=== PATIENT | male | born 1965 | race Hispanic/Latino ===

== ENCOUNTER 2019-01-03 12:42 | Emergency (ER) | payer BC ==
[2019-01-03] MEDS ORDERED: Ibuprofen 200 MG TAB ONE (14:45)
[2019-01-03] MEDS ORDERED: Adacel (T-DAP) 0.5 ML SYRINGE ONE (14:45)
[2019-01-03] MEDS ORDERED: Lidocaine 1% (PF) 30 ML VIAL ONE (15:07)
--- NOTE | 2019-01-03 15:57 | RAD ---
Exam:3 views left HISTORY: Pain. Trauma. Injury. COMPARISON: None FINDINGS: Posttraumatic soft tissue changes secondary to injury of the first digit. No definite radio paque foreign body. No fracture, cortical regular periosteal reaction. Joint spaces are preserved. IMPRESSION: No fracture. Questionable radiopaque foreign body. Correlate clinically
== END 2019-01-03 17:11 | disposition home or self-care (01) ==
LOC: ERS 12:42
DX: S61.211A Laceration without foreign body of left index finger without damage to nail, initial encounter (principal); W26.8XXA Contact with other sharp object(s), not elsewhere classified, initial encounter; Z23 Encounter for immunization
CPT/HCPCS: 12001; 90471; 90715; J2001